=== PATIENT | female | born 1970 ===

== ENCOUNTER 2017-07-01 11:15 | Inpatient (IN) | payer OTHER ==
[~2017-07-01] VITALS: Ht 160 cm; Wt 59.0 kg
[2017-07-01] MEDS ORDERED: COZAAR25 MG PO (13:43)
[2017-07-01] MEDS ORDERED: ARIMIDEX PO (13:44)
[2017-07-01] MEDS ORDERED: VITAMIN D350000 UNIT PO (13:44)
[2017-07-08] MEDS ORDERED: TANDEM PLUS CA1 EACH PO (09:00)
[2017-07-08] MEDS ORDERED: ULTRACET PO (09:00)
== END 2017-07-08 11:44 | DRG 743 ==
LOC: EDSTATUS 11:15 → ADM 11:15 → O/R 07-07 05:30 → SURG 07-07 09:00 → OB/GYN 07-07 13:45
PROVIDERS: Obstetrics & Gynecology
PROC: 0UT24ZZ Resection of Bilateral Ovaries, Percutaneous Endoscopic Approach (ICD-10-PCS; 2017-07-07)
PROC: 0UT74ZZ Resection of Bilateral Fallopian Tubes, Percutaneous Endoscopic Approach (ICD-10-PCS; 2017-07-07)
PROC: 0UT94ZZ Resection of Uterus, Percutaneous Endoscopic Approach (ICD-10-PCS; principal; 2017-07-07 09:00)
DX: D27.0 Benign neoplasm of right ovary (principal); N84.0 Polyp of corpus uteri; N72 Inflammatory disease of cervix uteri; D05.12 Intraductal carcinoma in situ of left breast; Z17.0 Estrogen receptor positive status [ER+]